=== PATIENT | male | born 1940 | race Caucasian/White ===

== ENCOUNTER → 2019-11-24 10:07 | Day surgery (SDC) | payer MEDICARE ==
[~2019-11-24 10:07] MED LIST: Buffered Lidocaine 1% SYRIN* 1 ML/SYRINGE INTRADERM ONE; Bupivacaine 0.25% SDV* 30 ML ONE; Dexamethasone IV* 4 MG/ML 1 ML (4 MG) ONE; Famotidine IV* 10 MG/ML 2 ML (20 mg) IV ONE; Ketorolac INJ* 30 MG/ML 1 ML VIAL ONE; Lactated Ringers 1000 ML Bag* 1,000 ML IV SCH; Lidocaine 2% PF * 5 ML VIAL ONE; Midazolam* 1 MG/ML 5 ML VIAL (5 MG) ONE; Ondansetron INJ* 2 MG/ML VIAL ONE; Propofol* 10 MG/ML 20 ML BTL ONE; fentaNYL* 50 MCG/ML 2 ML VIAL (100 MCG VIAL) ONE
[2019-11-24 12:22] LABS: INR 1.17 (0.82-1.09)
[2019-11-24 14:05] VITALS: BP 113/67
--- NOTE | 2019-11-24 21:04 | OP ---
DATE OF OPERATION: 11/24/19 - [facility] DATE OF : 40 SURGEON: Endy Vu MD [employer] ATTENDANT: GRICELDA Montez ANESTHESIOLOGIST: Dr. Marcos. ANESTHESIA: Local MAC. PRE-OP DIAGNOSIS: Left carpal tunnel syndrome. POST-OP DIAGNOSIS: Left carpal tunnel syndrome. OPERATIVE PROCEDURE: Left open carpal tunnel release. INDICATIONS: Mr. Kim is 79 years old. He has pretty severe carpal tunnel syndrome. We had talked about treatment options, risks and benefits. He had wanted to proceed with surgery. ESTIMATED BLOOD LOSS: 2 mL. COMPLICATIONS: None. FINDINGS: See above and below. DESCRIPTION OF PROCEDURE: Mr. Kim was seen in preoperative holding area. The correct site, side and procedure were identified. We came back to the operating room. The arm was prepped and draped in usual fashion and time-out was performed. The arm was exsanguinated with an Esmarch and the tourniquet was inflated. I made an incision in the proximal palm. Dissection was carried down through the subcutaneous tissue and palmar fascia. The transverse carpal ligament was released off the radial aspect of the hook of the hamate. I completed the release distally. Proximally, I released the remainder of the transverse carpal ligament and the distal antebrachial fascia. At this point, there was still band of tissue proximally of fascia that I thought would be compressive and I could not get to it from the palm incision. I therefore made a small transverse incision right over to the top of it just about 1.5 cm proximal to the wrist flexion crease. Dissection was carried down. I was able to identify that and then released the remainder of the distal antebrachial fascia. At that point, everything was nicely decompressed. The wounds were irrigated out. Skin was closed with 4-0 nylon suture. A soft dressing was applied and he was taken to the recovery room in stable condition. [id number]/[facility] #: [id number] [facility]
== END | disposition home or self-care (01) ==
LOC: OR 10:07
PROVIDERS: ATTEND Orthopaedic Surgery Hand Surgery
DX: G56.02 Carpal tunnel syndrome, left upper limb (principal); G47.33 Obstructive sleep apnea (adult) (pediatric); I10 Essential (primary) hypertension; I48.20 Chronic atrial fibrillation, unspecified; E78.2 Mixed hyperlipidemia; N40.0 Benign prostatic hyperplasia without lower urinary tract symptoms; G25.81 Restless legs syndrome; Z79.01 Long term (current) use of anticoagulants; Z87.891 Personal history of nicotine dependence; Z88.0 Allergy status to penicillin; Z88.8 Allergy status to other drugs, medicaments and biological substances; Z99.81 Dependence on supplemental oxygen; Z85.820 Personal history of malignant melanoma of skin
CPT/HCPCS: 36415; 85610; J1100; J1885; J2250; J2405; J2704; J3010; J3490

== ENCOUNTER 2023-03-07 08:26 | Inpatient (IN) ==
[2023-03-07] MEDS ORDERED: Senna TAB 8.6 mg TAB PO PRN (17:03)
[2023-03-07] MEDS ORDERED: Polyethylene Glycol 3350 17 GM PACKET PO PRN (17:16)
[2023-03-07] MEDS: Fluticasone NASAL SPRAY 50MCG 16 gm SPRAY BTL BOTH NARES SCH (21:14)
[2023-03-07] MEDS: Nystatin TOP POWDER 15 GM BTL TOPICAL SCH (21:14)
[2023-03-08] MEDS: Nystatin TOP POWDER 15 GM BTL TOPICAL SCH ×2 (08:34→22:33)
[2023-03-08] MEDS: Cholecalciferol (VIT D3) 1,000 unit TAB PO SCH (10:31)
[2023-03-08] MEDS ORDERED: Lidocaine 2% JELLY 6 ML Topical TOPICAL ONE (11:36)
[2023-03-08] MEDS: Lidocaine 2% JELLY 6 ML Topical TOPICAL PRN (22:33)
[2023-03-08] MEDS: Fluticasone NASAL SPRAY 50MCG 16 gm SPRAY BTL BOTH NARES SCH (22:33)
[2023-03-09 06:33] LABS: ABS Basophils 0.1 10^3/uL (0.0-0.1); ABS Eosinophils 0.1 10^3/uL (0.0-0.5); ABS Lymphocytes 0.7 10^3/uL (1.0-4.8); ABS Monocytes 1.2 10^3/uL (0.0-1.1); ABS Neutrophils 6.5 10^3/uL (1.5-7.6); Eosinophil % 1.7 %; Lymphocyte % 7.7 %; Mean Corpuscular Hemoglobin 28.4 pg (27-33); Mean Corpuscular Hgb Conc 33.4 g/dL (31-36); Mean Platelet Volume 6.2 fL (7.5-11.2); Platelet Count 277 10^3/uL (150-450); Red Blood Count 3.18 10^6/uL (4.06-5.63); Red Cell Distribution Width 16.6 % (12-17); White Blood Count 8.6 10^3/uL (3.6-10.2)
[2023-03-09 06:52] LABS: Albumin 2.3 g/dL (3.2-5.2); Albumin/Globulin Ratio 1.2 (1-3); Calcium 7.6 mg/dL (8.6-10.3); Creatinine, Serum 0.61 mg/dL (0.67-1.17); Potassium 4.5 mmol/L (3.5-5.0); Total Bilirubin 0.7 mg/dL (0.2-1.0); Total Protein 4.3 g/dL (6.4-8.9); eGFR CKD-EPI 95.3 (>60)
[2023-03-09] MEDS: Cholecalciferol (VIT D3) 1,000 unit TAB PO SCH (08:34)
[2023-03-09] MEDS: Nystatin TOP POWDER 15 GM BTL TOPICAL SCH ×2 (09:57→21:39)
[2023-03-09] MEDS: Calcium (OSCAL) 500 mg TAB PO SCH ×2 (11:19→21:39)
[2023-03-09] MEDS: PTO: Mirabegron 50 mg ER TAB (NF) PO SCH (14:48)
[2023-03-09] MEDS: Fluticasone NASAL SPRAY 50MCG 16 gm SPRAY BTL BOTH NARES SCH (21:40)
[2023-03-10] MEDS: Cholecalciferol (VIT D3) 1,000 unit TAB PO SCH (10:31)
[2023-03-10] MEDS: Calcium (OSCAL) 500 mg TAB PO SCH ×2 (10:31→20:44)
[2023-03-10] MEDS: PTO: Mirabegron 50 mg ER TAB (NF) PO SCH (10:33)
[2023-03-10] MEDS: Nystatin TOP POWDER 15 GM BTL TOPICAL SCH ×2 (10:34→20:44)
[2023-03-10] MEDS: Fluticasone NASAL SPRAY 50MCG 16 gm SPRAY BTL BOTH NARES SCH (20:44)
[2023-03-11] MEDS: Calcium (OSCAL) 500 mg TAB PO SCH ×2 (08:10→19:54)
[2023-03-11] MEDS: Cholecalciferol (VIT D3) 1,000 unit TAB PO SCH (08:10)
[2023-03-11] MEDS: PTO: Mirabegron 50 mg ER TAB (NF) PO SCH (08:10)
[2023-03-11] MEDS: Nystatin TOP POWDER 15 GM BTL TOPICAL SCH ×2 (08:12→19:55)
[2023-03-11] MEDS: Fluticasone NASAL SPRAY 50MCG 16 gm SPRAY BTL BOTH NARES SCH (19:54)
[2023-03-12] MEDS: Cholecalciferol (VIT D3) 1,000 unit TAB PO SCH (07:28)
[2023-03-12] MEDS: PTO: Mirabegron 50 mg ER TAB (NF) PO SCH (07:28)
[2023-03-12] MEDS: Calcium (OSCAL) 500 mg TAB PO SCH ×2 (07:28→21:21)
[2023-03-12 08:43] LABS: Creatinine, Serum 0.67 mg/dL (0.67-1.17); Potassium 4.6 mmol/L (3.5-5.0); eGFR CKD-EPI 92.6 (>60)
[2023-03-12] MEDS: Nystatin TOP POWDER 15 GM BTL TOPICAL SCH ×2 (10:58→21:22)
[2023-03-12] MEDS: Fluticasone NASAL SPRAY 50MCG 16 gm SPRAY BTL BOTH NARES SCH (21:20)
[2023-03-13] MEDS: Cholecalciferol (VIT D3) 1,000 unit TAB PO SCH (08:23)
[2023-03-13] MEDS: Calcium (OSCAL) 500 mg TAB PO SCH ×2 (09:23→21:26)
[2023-03-13] MEDS: PTO: Mirabegron 50 mg ER TAB (NF) PO SCH (10:22)
[2023-03-13] MEDS: Nystatin TOP POWDER 15 GM BTL TOPICAL SCH ×2 (11:19→23:00)
[2023-03-13] MEDS: Fluticasone NASAL SPRAY 50MCG 16 gm SPRAY BTL BOTH NARES SCH (21:26)
[2023-03-14] MEDS: PTO: Mirabegron 50 mg ER TAB (NF) PO SCH (09:45)
[2023-03-14] MEDS: Calcium (OSCAL) 500 mg TAB PO SCH ×2 (09:46→21:24)
[2023-03-14] MEDS: Cholecalciferol (VIT D3) 1,000 unit TAB PO SCH (09:46)
[2023-03-14] MEDS: Nystatin TOP POWDER 15 GM BTL TOPICAL SCH ×2 (09:48→22:45)
[2023-03-14] MEDS: Fluticasone NASAL SPRAY 50MCG 16 gm SPRAY BTL BOTH NARES SCH (21:24)
[2023-03-15] MEDS: Nystatin TOP POWDER 15 GM BTL TOPICAL SCH ×2 (08:37→21:40)
[2023-03-15] MEDS: Cholecalciferol (VIT D3) 1,000 unit TAB PO SCH (09:53)
[2023-03-15] MEDS: PTO: Mirabegron 50 mg ER TAB (NF) PO SCH (09:53)
[2023-03-15] MEDS: Lidocaine 2% JELLY 6 ML Topical TOPICAL PRN (12:39)
[2023-03-15] MEDS: Calcium (OSCAL) 500 mg TAB PO SCH ×2 (14:19→21:36)
[2023-03-15] MEDS: Fluticasone NASAL SPRAY 50MCG 16 gm SPRAY BTL BOTH NARES SCH (21:39)
[2023-03-16 06:24] LABS: ABS Basophils 0.1 10^3/uL (0.0-0.1); ABS Eosinophils 0.2 10^3/uL (0.0-0.5); ABS Lymphocytes 1.1 10^3/uL (1.0-4.8); ABS Monocytes 0.9 10^3/uL (0.0-1.1); ABS Neutrophils 4.3 10^3/uL (1.5-7.6); Eosinophil % 3.1 %; Hematocrit 27.4 % (38-53); Hemoglobin 8.9 g/dL (13.2-16.3); Lymphocyte % 16.1 %; Mean Corpuscular Hemoglobin 27.8 pg (27-33); Mean Corpuscular Hgb Conc 32.6 g/dL (31-36); Mean Corpuscular Volume 85.2 fL (80-97); Mean Platelet Volume 6.2 fL (7.5-11.2); Platelet Count 340 10^3/uL (150-450); Red Blood Count 3.22 10^6/uL (4.06-5.63); Red Cell Distribution Width 16.8 % (12-17); White Blood Count 6.6 10^3/uL (3.6-10.2)
[2023-03-16 06:59] LABS: Albumin 2.4 g/dL (3.2-5.2); Albumin/Globulin Ratio 1.3 (1-3); Calcium 7.9 mg/dL (8.6-10.3); Creatinine, Serum 0.77 mg/dL (0.67-1.17); Globulin 1.9 g/dL (2-4); Potassium 4.6 mmol/L (3.5-5.0); Total Bilirubin 0.5 mg/dL (0.2-1.0); Total Protein 4.3 g/dL (6.4-8.9); eGFR CKD-EPI 88.8 (>60)
[2023-03-16] MEDS: Cholecalciferol (VIT D3) 1,000 unit TAB PO SCH (08:18)
[2023-03-16] MEDS: Calcium (OSCAL) 500 mg TAB PO SCH ×2 (08:19→21:22)
[2023-03-16] MEDS: PTO: Mirabegron 50 mg ER TAB (NF) PO SCH (08:19)
[2023-03-16] MEDS: Nystatin TOP POWDER 15 GM BTL TOPICAL SCH ×2 (09:31→21:23)
[2023-03-16] MEDS: Fluticasone NASAL SPRAY 50MCG 16 gm SPRAY BTL BOTH NARES SCH (21:23)
[2023-03-17] MEDS: Cholecalciferol (VIT D3) 1,000 unit TAB PO SCH (07:59)
[2023-03-17] MEDS: Calcium (OSCAL) 500 mg TAB PO SCH ×2 (08:01→20:56)
[2023-03-17] MEDS: PTO: Mirabegron 50 mg ER TAB (NF) PO SCH (08:01)
[2023-03-17] MEDS: Nystatin TOP POWDER 15 GM BTL TOPICAL SCH ×2 (11:54→23:10)
[2023-03-17] MEDS: Fluticasone NASAL SPRAY 50MCG 16 gm SPRAY BTL BOTH NARES SCH (20:57)
[2023-03-18] MEDS: Calcium (OSCAL) 500 mg TAB PO SCH ×2 (09:15→21:42)
[2023-03-18] MEDS: Cholecalciferol (VIT D3) 1,000 unit TAB PO SCH (09:15)
[2023-03-18] MEDS: PTO: Mirabegron 50 mg ER TAB (NF) PO SCH (09:18)
[2023-03-18] MEDS: Nystatin TOP POWDER 15 GM BTL TOPICAL SCH ×2 (09:21→22:33)
[2023-03-18] MEDS: Fluticasone NASAL SPRAY 50MCG 16 gm SPRAY BTL BOTH NARES SCH (21:43)
[2023-03-19] MEDS: Cholecalciferol (VIT D3) 1,000 unit TAB PO SCH (07:23)
[2023-03-19] MEDS: Calcium (OSCAL) 500 mg TAB PO SCH ×2 (07:23→20:13)
[2023-03-19] MEDS: PTO: Mirabegron 50 mg ER TAB (NF) PO SCH (07:26)
[2023-03-19] MEDS: Nystatin TOP POWDER 15 GM BTL TOPICAL SCH ×2 (09:51→20:15)
[2023-03-19 19:46] VITALS: BP 118/81
[2023-03-19] MEDS: Fluticasone NASAL SPRAY 50MCG 16 gm SPRAY BTL BOTH NARES SCH (22:24)
[2023-03-20 07:37] LABS: Calcium 7.9 mg/dL (8.6-10.3); Creatinine, Serum 0.6 mg/dL (0.67-1.17); Potassium 4.1 mmol/L (3.5-5.0); eGFR CKD-EPI 95.8 (>60)
[2023-03-20] MEDS: Cholecalciferol (VIT D3) 1,000 unit TAB PO SCH (08:55)
[2023-03-20] MEDS: PTO: Mirabegron 50 mg ER TAB (NF) PO SCH (09:02)
[2023-03-20] MEDS: Nystatin TOP POWDER 15 GM BTL TOPICAL SCH (09:02)
[2023-03-20] MEDS: Calcium (OSCAL) 500 mg TAB PO SCH (09:03)
== END 2023-03-20 15:24 | disposition home or self-care (01) | DRG 683 ==
LOC: PMRU 13:33
PROVIDERS: ADMIT Physical Medicine & Rehabilitation; ATTEND Physical Medicine & Rehabilitation

== ENCOUNTER 2023-06-18 15:37 | Inpatient (IN) ==
[2023-06-18 18:37] LABS: ABS Basophils 0.1 10^3/uL (0.0-0.1); ABS Eosinophils 0.1 10^3/uL (0.0-0.5); ABS Lymphocytes 1.2 10^3/uL (1.0-4.8); ABS Monocytes 1.1 10^3/uL (0.0-1.1); ABS Neutrophils 4.1 10^3/uL (1.5-7.6); ABS Nucleated RBC 0.01 10^3/ul; Eosinophil % 1.7 %; Hematocrit 38.2 % (38-53); Hemoglobin 12.1 g/dL (13.2-16.3); Lymphocyte % 18.2 %; Mean Corpuscular Hemoglobin 25.1 pg (27-33); Mean Corpuscular Hgb Conc 31.7 g/dL (31-36); Mean Corpuscular Volume 79.1 fL (80-97); Mean Platelet Volume 6.8 fL (7.5-11.2); Nucleated Red Blood Cells % 0.1 /100 WBC (0.0-0.4); Platelet Count 202 10^3/uL (150-450); Red Blood Count 4.83 10^6/uL (4.06-5.63); Red Cell Distribution Width 17.5 % (12-17); White Blood Count 6.6 10^3/uL (3.6-10.2)
[2023-06-18 18:55] LABS: Albumin/Globulin Ratio 1.3 (1-3); Calcium 9.2 mg/dL (8.6-10.3); Creatinine, Serum 0.89 mg/dL (0.67-1.17); Globulin 3.2 g/dL (2-4); Magnesium 1.8 mg/dL (1.9-2.7); Potassium 4.3 mmol/L (3.5-5.0); Total Bilirubin 0.7 mg/dL (0.2-1.0); Total Protein 7.2 g/dL (6.4-8.9)
[2023-06-18] MEDS ORDERED: Furosemide 40 mg/4 ml IV VIAL IV SLOW PU ONE (19:00)
[2023-06-18 19:58] LABS: High Sensitivity Troponin 1 Hr 8 pg/mL (<20)
[2023-06-18 21:14] LABS: Urine Appearance Clear; Urine Bilirubin Negative (Negative); Urine Blood 1+ (Negative); Urine Color Straw; Urine Glucose 2+(150 mg/dL) (Negative); Urine Ketones Negative (Negative); Urine Nitrite Negative (Negative); Urine Protein Negative (Negative); Urine Specific Gravity 1.006 (1.002-1.030); Urine Urobilinogen Negative (Negative)
[2023-06-18 21:25] LABS: Urine Bacteria Absent (Absent); Urine Red Blood Cell Trace(0-2/hpf) (Absent); Urine White Blood Cell Trace(0-5/hpf) (Absent)
[2023-06-18] MEDS ORDERED: Magnesium Sulfate IV 3 GM in NS 0.9% 100 ml BAG 100 ML IVPB ONE (22:10)
[2023-06-18] MEDS ORDERED: Ondansetron 4 mg VIAL 2 MG/ML 2 ml VIAL IV PRN (22:18)
[2023-06-18] MEDS ORDERED: Senna TAB 8.6 mg TAB PO PRN (22:18)
[2023-06-18] MEDS ORDERED: Polyethylene Glycol 3350 17 GM PACKET PO PRN (22:18)
[2023-06-18] MEDS ORDERED: Bumetanide IV 0.25 MG/ML 4 ml VIAL (1 mg) IV SLOW PU ONE (23:55)
[2023-06-19] MEDS ORDERED: Bumetanide IV 0.25 MG/ML 4 ml VIAL (1 mg) IV SLOW PU ONE (05:30)
[2023-06-19 06:43] LABS: ABS Basophils 0.1 10^3/uL (0.0-0.1); ABS Eosinophils 0.1 10^3/uL (0.0-0.5); ABS Lymphocytes 1.1 10^3/uL (1.0-4.8); ABS Monocytes 1.4 10^3/uL (0.0-1.1); ABS Neutrophils 3.4 10^3/uL (1.5-7.6); ABS Nucleated RBC 0.01 10^3/ul; Eosinophil % 2.2 %; Hematocrit 36.2 % (38-53); Hemoglobin 11.4 g/dL (13.2-16.3); Lymphocyte % 18.6 %; Mean Corpuscular Hemoglobin 24.8 pg (27-33); Mean Corpuscular Hgb Conc 31.4 g/dL (31-36); Mean Corpuscular Volume 78.8 fL (80-97); Mean Platelet Volume 6.6 fL (7.5-11.2); Nucleated Red Blood Cells % 0.1 /100 WBC (0.0-0.4); Platelet Count 209 10^3/uL (150-450); Red Blood Count 4.59 10^6/uL (4.06-5.63); Red Cell Distribution Width 16.9 % (12-17); White Blood Count 6.2 10^3/uL (3.6-10.2)
[2023-06-19 06:56] LABS: Calcium 8.5 mg/dL (8.6-10.3); Creatinine, Serum 0.91 mg/dL (0.67-1.17); Potassium 3.9 mmol/L (3.5-5.0); eGFR CKD-EPI 83.6 (>60)
[2023-06-19] MEDS ORDERED: OMEGA-3 FATTY ACID 1000 mg(NF) PO SCH (09:00)
[2023-06-19] MEDS: Calcium (OSCAL) 500 mg TAB PO SCH ×2 (09:24→20:09)
[2023-06-19] MEDS: Cholecalciferol (VIT D3) 1,000 unit TAB PO SCH (09:26)
[2023-06-19] MEDS: Multivitamins/Minerals TAB PO SCH (09:27)
[2023-06-19] MEDS: CMCS:Mirabegron 25 mg ER TAB (NF) PO SCH (09:27)
[2023-06-19] MEDS ORDERED: Furosemide 20 mg/2 ml IV VIAL IV ONE (18:09)
[2023-06-19] MEDS: Fluticasone NASAL SPRAY 50MCG 16 gm SPRAY BTL BOTH NARES SCH (20:42)
[2023-06-20 06:27] LABS: Hematocrit 35.4 % (38-53); Hemoglobin 11.3 g/dL (13.2-16.3); Mean Corpuscular Hemoglobin 24.8 pg (27-33); Mean Corpuscular Hgb Conc 31.9 g/dL (31-36); Platelet Count 204 10^3/uL (150-450); Red Blood Count 4.54 10^6/uL (4.06-5.63); Red Cell Distribution Width 16.9 % (12-17); White Blood Count 7.7 10^3/uL (3.6-10.2)
[2023-06-20 06:28] LABS: ABS Eosinophils 0.1 10^3/uL (0.0-0.5); ABS Lymphocytes 0.9 10^3/uL (1.0-4.8); ABS Monocytes 1.7 10^3/uL (0.0-1.1); Eosinophil % 1.2 %
[2023-06-20 06:40] LABS: Calcium 8.4 mg/dL (8.6-10.3); Creatinine, Serum 0.78 mg/dL (0.67-1.17); Potassium 4.1 mmol/L (3.5-5.0); eGFR CKD-EPI 88.5 (>60)
[2023-06-20] MEDS: Calcium (OSCAL) 500 mg TAB PO SCH ×2 (10:15→20:32)
[2023-06-20] MEDS: Cholecalciferol (VIT D3) 1,000 unit TAB PO SCH (10:15)
[2023-06-20] MEDS: Multivitamins/Minerals TAB PO SCH (10:15)
[2023-06-20] MEDS: OMEGA-3 FATTY ACID 1000 mg(NF) PO SCH (10:23)
[2023-06-20] MEDS: CMCS:Mirabegron 25 mg ER TAB (NF) PO SCH (10:23)
[2023-06-20] MEDS ORDERED: Furosemide 40 mg/4 ml IV VIAL IV SLOW PU ONE (14:16)
[2023-06-20] MEDS: Fluticasone NASAL SPRAY 50MCG 16 gm SPRAY BTL BOTH NARES SCH (22:34)
[2023-06-21 06:09] LABS: Calcium 8.1 mg/dL (8.6-10.3); Creatinine, Serum 0.76 mg/dL (0.67-1.17); Magnesium 1.8 mg/dL (1.9-2.7); Potassium 3.9 mmol/L (3.5-5.0); eGFR CKD-EPI 89.2 (>60)
[2023-06-21] MEDS ORDERED: Magnesium Sulfate 2 gm BAG 2 GM/50 ML BAG IVPB ONE (07:39)
[2023-06-21] MEDS: Calcium (OSCAL) 500 mg TAB PO SCH ×2 (08:53→20:56)
[2023-06-21] MEDS: Multivitamins/Minerals TAB PO SCH (08:54)
[2023-06-21] MEDS: Cholecalciferol (VIT D3) 1,000 unit TAB PO SCH (08:54)
[2023-06-21] MEDS: CMCS:Mirabegron 25 mg ER TAB (NF) PO SCH (08:54)
[2023-06-21] MEDS: OMEGA-3 FATTY ACID 1000 mg(NF) PO SCH (08:56)
[2023-06-21] MEDS ORDERED: Furosemide 40 mg/4 ml IV VIAL IV SLOW PU ONE (09:38)
[2023-06-21] MEDS: Fluticasone NASAL SPRAY 50MCG 16 gm SPRAY BTL BOTH NARES SCH (20:56)
[2023-06-22 07:03] LABS: Calcium 8.3 mg/dL (8.6-10.3); Creatinine, Serum 0.68 mg/dL (0.67-1.17); Potassium 4.1 mmol/L (3.5-5.0); eGFR CKD-EPI 92.2 (>60)
[2023-06-22] MEDS ORDERED: Furosemide 40 mg/4 ml IV VIAL IV SLOW PU ONE (09:23)
[2023-06-22] MEDS: Cholecalciferol (VIT D3) 1,000 unit TAB PO SCH (10:49)
[2023-06-22] MEDS: Calcium (OSCAL) 500 mg TAB PO SCH ×2 (10:50→22:08)
[2023-06-22] MEDS: OMEGA-3 FATTY ACID 1000 mg(NF) PO SCH (10:51)
[2023-06-22] MEDS: Multivitamins/Minerals TAB PO SCH (10:51)
[2023-06-22] MEDS: CMCS:Mirabegron 25 mg ER TAB (NF) PO SCH (10:52)
[2023-06-22] MEDS: Collagenase 250 units/gm OINT 1 tube TOPICAL SCH (20:10)
[2023-06-22] MEDS: Fluticasone NASAL SPRAY 50MCG 16 gm SPRAY BTL BOTH NARES SCH (22:15)
[2023-06-23] MEDS ORDERED: Furosemide 40 mg/4 ml IV VIAL IV SLOW PU ONE ×2 (06:59→16:21)
[2023-06-23] MEDS: Cholecalciferol (VIT D3) 1,000 unit TAB PO SCH (08:15)
[2023-06-23] MEDS: Calcium (OSCAL) 500 mg TAB PO SCH ×2 (08:15→20:49)
[2023-06-23] MEDS: Multivitamins/Minerals TAB PO SCH (08:15)
[2023-06-23] MEDS: OMEGA-3 FATTY ACID 1000 mg(NF) PO SCH (08:15)
[2023-06-23] MEDS: CMCS:Mirabegron 25 mg ER TAB (NF) PO SCH (08:18)
[2023-06-23 09:13] LABS: Calcium 8.6 mg/dL (8.6-10.3); Creatinine, Serum 0.63 mg/dL (0.67-1.17); Magnesium 1.9 mg/dL (1.9-2.7); Potassium 3.9 mmol/L (3.5-5.0); eGFR CKD-EPI 94.4 (>60)
[2023-06-23] MEDS: Collagenase 250 units/gm OINT 1 tube TOPICAL SCH (11:09)
[2023-06-23] MEDS: Fluticasone NASAL SPRAY 50MCG 16 gm SPRAY BTL BOTH NARES SCH (20:51)
[2023-06-24 06:47] LABS: ABS Eosinophils 0.1 10^3/uL (0.0-0.5); ABS Lymphocytes 0.8 10^3/uL (1.0-4.8); ABS Monocytes 1.3 10^3/uL (0.0-1.1); ABS Neutrophils 4.8 10^3/uL (1.5-7.6); ABS Nucleated RBC 0.01 10^3/ul; Eosinophil % 1.9 %; Hematocrit 35.4 % (38-53); Hemoglobin 11.3 g/dL (13.2-16.3); Lymphocyte % 11.1 %; Mean Corpuscular Hemoglobin 24.8 pg (27-33); Mean Corpuscular Hgb Conc 31.9 g/dL (31-36); Mean Corpuscular Volume 77.9 fL (80-97); Mean Platelet Volume 6.7 fL (7.5-11.2); Nucleated Red Blood Cells % 0.1 /100 WBC (0.0-0.4); Platelet Count 238 10^3/uL (150-450); Red Blood Count 4.55 10^6/uL (4.06-5.63); Red Cell Distribution Width 16.9 % (12-17)
[2023-06-24 06:49] LABS: Calcium 8.6 mg/dL (8.6-10.3); Creatinine, Serum 0.75 mg/dL (0.67-1.17); Potassium 3.9 mmol/L (3.5-5.0); eGFR CKD-EPI 89.5 (>60)
[2023-06-24] MEDS: OMEGA-3 FATTY ACID 1000 mg(NF) PO SCH (08:35)
[2023-06-24] MEDS: Multivitamins/Minerals TAB PO SCH (08:35)
[2023-06-24] MEDS: Cholecalciferol (VIT D3) 1,000 unit TAB PO SCH (08:35)
[2023-06-24] MEDS: Calcium (OSCAL) 500 mg TAB PO SCH ×2 (08:35→20:50)
[2023-06-24] MEDS: CMCS:Mirabegron 25 mg ER TAB (NF) PO SCH (08:35)
[2023-06-24] MEDS: Collagenase 250 units/gm OINT 1 tube TOPICAL SCH (08:39)
[2023-06-24] MEDS: Furosemide 40 mg/4 ml IV VIAL IV SLOW PU SCH (12:02)
[2023-06-24] MEDS: Fluticasone NASAL SPRAY 50MCG 16 gm SPRAY BTL BOTH NARES SCH (20:52)
[2023-06-25] MEDS: Calcium (OSCAL) 500 mg TAB PO SCH (08:23)
[2023-06-25] MEDS: Cholecalciferol (VIT D3) 1,000 unit TAB PO SCH (08:23)
[2023-06-25] MEDS: OMEGA-3 FATTY ACID 1000 mg(NF) PO SCH (08:24)
[2023-06-25] MEDS: Multivitamins/Minerals TAB PO SCH (08:24)
[2023-06-25] MEDS: Furosemide 40 mg/4 ml IV VIAL IV SLOW PU SCH (08:26)
[2023-06-25] MEDS: CMCS:Mirabegron 25 mg ER TAB (NF) PO SCH (08:28)
[2023-06-25] MEDS: Collagenase 250 units/gm OINT 1 tube TOPICAL SCH (08:31)
[2023-06-25 14:25] VITALS: BP 98/84
== END 2023-06-25 14:29 | DRG 291 ==
LOC: ED 15:37 → INTOOBSV 22:18 → SUATTDRO 22:18 → EDHOLD 22:18 → MEDTELE 06-19 00:12 → SUATTDRO 06-20 13:14
PROVIDERS: ADMIT Internal Medicine; ATTEND Family Medicine